=== PATIENT | female | born 1995 | race Caucasian/White ===

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

== ENCOUNTER 2017-03-24 19:52 | Emergency (ER) | payer BC ==
[~2017-03-24] VITALS: Ht 170.2 cm; Wt 66.5 kg
[~2017-03-24 19:52] MED LIST changes: -LIDO/EPINEPHRINE/SOD BICARB 20 ML VIAL INFIL ONE; -QUET1TAB11 PO; -SERT-234 PO; -XYLOCAINE 1%/SOD BICARB 20 ML VIAL INFIL ONE
[2017-03-24 20:10] VITALS: Ht 170.2 cm; Wt 66.5 kg
[2017-03-24] MEDS ORDERED: LEVO112T4 PO (21:18)
[2017-03-24] MEDS ORDERED: GDN60 PO (21:18)
[2017-03-24] MEDS ORDERED: KLN5X PO (21:18)
[2017-03-24] MEDS ORDERED: LAMO200T35 PO (21:18)
[2017-03-24] MEDS ORDERED: KLN5 PO (21:18)
[2017-03-24 21:32] LABS: BASO % 0.3 %; BASO ABS # 0.03 K/uL (0-0.2); EOS % 2.2 %; HEMATOCRIT 39.9 % (37-47); HEMOGLOBIN 13.4 g/dL (12.0-16.0); IG# 0.02 K/uL (0.00-0.02); LYMPH % 31.5 %; MEAN CELL VOLUME 94.3 fL (80-100); MEAN CORPUSCULAR HEMOGLOBIN 31.7 pg (25-34); MEAN CORPUSCULAR HGB CONC 33.6 g/dl (32-36); MEAN PLATELET VOLUME 10.2 fL (7.4-10.4); MONO % 7.8 %; MONO ABS # 0.72 K/uL (0.11-0.59); NEUT ABS # 5.34 K/uL (1.4-6.5); PLATELET COUNT 296 K/uL (130-400); RED CELL DISTRIBUTION WIDTH CV 12.3 % (11.5-14.5); RED CELL DISTRIBUTION WIDTH SD 42.1 fL (36.4-46.3); WHITE BLOOD COUNT 9.21 K/uL (4.8-10.8)
[2017-03-24 21:53] LABS: CALCIUM 9.4 mg/dl (8.5-10.1); CREATININE 0.88 mg/dl (0.60-1.20); POTASSIUM 3.3 mmol/L (3.5-5.1)
[2017-03-24 21:56] LABS: TOTAL PROTEIN 7.5 gm/dl (6.4-8.2)
[2017-03-24] MEDS ORDERED: CEFTRIAXONE SOD INJ 1 GM ADDVIAL IV STA (22:02)
[2017-03-24] MEDS ORDERED: SULF800T23 PO (23:05)
[2017-03-24] MEDS ORDERED: CEPH500C PO (23:05)
[2017-03-24 23:30] VITALS: BP 115/64; PULSE 81; TEMP 36.8; O2SAT 99
--- NOTE | 2017-03-25 01:08 | EMERGENCY ROOM VISIT NOTE ---
History Report prepared by Denis: Kajal Reese Under the Supervision of: Dr. Lb Mcelroy D.O. First contact with patient: 21:50 Chief Complaint: INFECTION Stated Complaint: SWOLLEN/INFLAMMED LT FOOT, BACTERIAL INFECTION Nursing Triage Summary: Pt reports she has an infected left foot. She went to the walk in clinic yesterday and placed on antibiotics. They told her if it did not get any better to come to ED. History of Present Illness The patient is a 21 year old female who presents to the Emergency Room with complaints of persistent infection starting 1.5 weeks ago. She developed a blister on the back of her left foot from walking around with part of her shoe bent inwards. She started getting redness surrounding the blister 2-3 days ago. She went to the clinic yesterday and was started on clindamycin and mupirocin. She was told to go to the ED today if the infection did not improve. She denies any fever, cough, rhinorrhea, or other symptoms. She is a [employer] student. Source of History: patient Onset: 1.5 weeks ago Position: foot (left) Quality: other (infection) Timing: other (persistent) Associated Symptoms: No fevers, No cough Review of Systems See HPI for pertinent positives & negatives. A total of 10 systems reviewed and were otherwise negative. Past Medical & Surgical Medical Problems: (1) Borderline persoality traits (2) Borderline Personality Traits (3) Eating disorder (4) Hypothyroidism (5) Major depressive disorder (6) Past Psychiatric Medications (7) Self-inflicted lacerations Family History Patient reports no known family medical history. Social History Smoking Status: Never Smoker Occupation Status: [employer] student Current/Historical Medications Scheduled Cephalexin Monohydrate (Keflex), 500 MG PO QID Clonazepam (Clonazepam), 0.25 MG PO BID Lamotrigine (Lamictal), 200 MG PO BID Levothyroxine Sodium (Levothyroxine Sodium), 112 MCG PO DAILY Sulfamethoxazole-Trimethoprim (Bactrim Ds 800MG/160MG), 1 TAB PO BID Ziprasidone (Geodon), 120 MG PO QPM Scheduled PRN Clonazepam (Clonazepam), 0.5 MG PO DAILY PRN for Anxiety Allergies Coded Allergies: No Known Allergies (Unverified , 03/14/16) Physical Exam Vital Signs Date Time Temp Pulse Resp B/P (MAP) Pulse Ox O2 Delivery O2 Flow Rate FiO2 03/24/17 23:30 36.8 81 16 115/64 99 Room Air 03/24/17 20:10 36.7 80 16 113/73 99 Room Air Physical Exam GENERAL: Sitting up in bed, alert, well appearing, well nourished, no distress, non-toxic EYE EXAM: normal conjunctiva. OROPHARYNX: no exudate, no erythema, lips, buccal mucosa, and tongue normal and mucous membranes are moist NECK: supple, no nuchal rigidity, no adenopathy, non-tender LUNGS: Clear to auscultation. Normal chest wall mechanics HEART: no murmurs, S1 normal and S2 normal ABDOMEN: abdomen soft, non-tender, normo-active bowel sounds, no masses, no rebound or guarding. SKIN: no rashes and no bruising UPPER EXTREMITIES: upper extremities are grossly normal. LOWER EXTREMITIES: No pitting edema. 2.5 cm ulcer with green purulent drainage at the base of the left heel with overlying pale skin. Surrounding erythema is present, but does not go above current line drawn from [facility]. NEURO EXAM: Normal sensorium, cranial nerves II-XII grossly intact, normal speech, no gross weakness of arms, no gross weakness of legs. Bedside US shows no fluid collection or abscess. Medical Decision & Procedures Laboratory Results 03/24/17 21:15 Red Blood Count 4.23, Mean Corpuscular Volume 94.3, Mean Corpuscular Hemoglobin 31.7, Mean Corpuscular Hemoglobin Concent 33.6, Mean Platelet Volume 10.2, Neutrophils (%) (Auto) 58.0, Lymphocytes (%) (Auto) 31.5, Monocytes (%) (Auto) 7.8, Eosinophils (%) (Auto) 2.2, Basophils (%) (Auto) 0.3, Neutrophils # (Auto) 5.34, Lymphocytes # (Auto) 2.90, Monocytes # (Auto) 0.72, Eosinophils # (Auto) 0.20, Basophils # (Auto) 0.03 03/24/17 21:15 Test 03/24/17 21:05 03/24/17 21:15 Urine Color YELLOW Urine Appearance CLEAR (CLEAR) Urine pH 7.0 (4.5-7.5) Urine Specific [place] 1.012 (1.000-1.030) Urine Protein NEG (NEG) Urine Glucose (UA) NEG (NEG) Urine Ketones NEG (NEG) Urine Occult Blood TRACE (NEG) Urine Nitrite NEG (NEG) Urine Bilirubin NEG (NEG) Urine Urobilinogen NEG (NEG) Urine Leukocyte Esterase MODERATE (NEG) Urine WBC (Auto) 10-30 /hpf (0-5) Urine RBC (Auto) 5-10 /hpf (0-4) Urine Hyaline Casts (Auto) 1-5 /lpf (0-5) Urine Epithelial Cells (Auto) >30 /lpf (0-5) Urine Bacteria (Auto) 1+ (NEG) Urine Test NEG (NEG) White Blood Count 9.21 K/uL (4.8-10.8) Red Blood Count 4.23 M/uL (4.2-5.4) Hemoglobin 13.4 g/dL (12.0-16.0) Hematocrit 39.9 % (37-47) Mean Corpuscular Volume 94.3 fL (80-100) Mean Corpuscular Hemoglobin 31.7 pg (25-34) Mean Corpuscular Hemoglobin Concent 33.6 g/dl (32-36) Platelet Count 296 K/uL (130-400) Mean Platelet Volume 10.2 fL (7.4-10.4) Neutrophils (%) (Auto) 58.0 % Lymphocytes (%) (Auto) 31.5 % Monocytes (%) (Auto) 7.8 % Eosinophils (%) (Auto) 2.2 % Basophils (%) (Auto) 0.3 % Neutrophils # (Auto) 5.34 K/uL (1.4-6.5) Lymphocytes # (Auto) 2.90 K/uL (1.2-3.4) Monocytes # (Auto) 0.72 K/uL (0.11-0.59) Eosinophils # (Auto) 0.20 K/uL (0-0.5) Basophils # (Auto) 0.03 K/uL (0-0.2) RDW Standard Deviation 42.1 fL (36.4-46.3) RDW Coefficient of Variation 12.3 % (11.5-14.5) Immature Granulocyte % (Auto) 0.2 % Immature Granulocyte # (Auto) 0.02 K/uL (0.00-0.02) Anion Gap 8.0 mmol/L (3-11) Est Creatinine Clear Calc Drug Dose 100.0 ml/min Estimated GFR () 110.4 Estimated GFR (Non- 95.3 BUN/Creatinine Ratio 6.4 (10-20) Calcium Level 9.4 mg/dl (8.5-10.1) Total Bilirubin 0.4 mg/dl (0.2-1) Aspartate Amino Transf (AST/SGOT) 26 U/L (15-37) Alanine Aminotransferase (ALT/SGPT) 24 U/L (12-78) Alkaline Phosphatase 70 U/L (45-117) Total Protein 7.5 gm/dl (6.4-8.2) Albumin 4.0 gm/dl (3.4-5.0) Globulin 3.5 gm/dl (2.5-4.0) Albumin/Globulin Ratio 1.1 (0.9-2) Laboratory results per my review. Medications Administered Medications (Trade) Dose Ordered Sig/Bebo Route Start Time Stop Time Status Last Admin Dose Admin Ceftriaxone Sodium (Rocephin Inj) 1 gm NOW STAT IV 03/24/17 22:02 03/24/17 22:03 DC 03/24/17 22:02 1 GM ED Course ED COURSE: Vital signs were reviewed and showed normal vitals. The patients medical record was reviewed The above diagnostic studies were performed and reviewed. ED treatments and interventions as stated above. 2154: The patient was evaluated in room A8. A complete history and physical examination was performed. 2201: Rocephin Inj 1 gm IV. 2301: Upon reevaluation, the patient is resting comfortably. I discussed my findings with the patient and she understands and agrees with the treatment plan. Based on the patients age, coexisting illnesses, exam and lab findings the decision to treat as an outpatient was made. The patient remained stable while under my care. The patient appeared well at the time of discharge. Medical Decision Differential diagnosis: Etiologies such as cellulitis, abscess, MRSA infection, DVT, necrotizing fasciitis, dermatitis, drug eruption, as well as others were entertained.. Patient is a 21-year-old female who presents to ER for a left heel ulcer which started from walking around in boots. She notes now she has surrounding erythema and swelling. On exam she has clear cellulitis. There was purulent discharge removed. Swab was obtained and sent for culture. Patient just started antibiotics 24 hours ago. He did switch her to Bactrim and Keflex. I considered covering for pseudomonas but we'll wait for culture. Patient was afebrile. CBC and BMP were unremarkable. Patient was updated bedside. Again bedside ultrasound showed no abscess, there is no leukocytosis, and patient was afebrile on antibiotics less than 24 hours; felt it was reasonable to discharge patient was well-appearing follow-up with U at bedtime as an outpatient within 24-48 hours for a wound recheck. Discussed with Pt concerning signs and symptoms to watch out for. Pt was instructed to follow up with their PCP and discussed with the patient their option to return to the ED at anytime for persistent or worsening symptoms. The appropriate anticipatory guidance and out- patient management, including indications for return to the emergency department , were explained at length to the patient and understood. Medication Reconcilliation Current Medication List: was personally reviewed by me Blood Pressure Screening Patient's blood pressure: Normal blood pressure Blood pressure disposition: Did not require urgent referral Impression Primary Impression: Cellulitis Additional Impression: Hypokalemia Scribe Attestation The scribe's documentation has been prepared under my direction and personally reviewed by me in its entirety. I confirm that the note above accurately reflects all work, treatment, procedures, and medical decision making performed by me. Departure Information Dispostion Home / Self-Care Prescriptions Cephalexin Monohydrate (Keflex) 500 Mg Cap 500 MG PO QID, #40 CAP Prov: Lb Mcelroy, DO 03/24/17 Sulfamethoxazole-Trimethoprim (Bactrim Ds 800MG/160MG) 1 Tab Tab 1 TAB PO BID for 10 Days, #20 TAB Prov: Lb Mcelroy, DO 03/24/17 Referrals No Doctor, Assigned (PCP) Forms HOME CARE DOCUMENTATION FORM, IMPORTANT VISIT INFORMATION, WORK / SCHOOL INSTRUCTIONS Patient Instructions Cellulitis - [facility], My [facility] Additional Instructions Please follow up with your primary care doctor or if you are a student, [facility] services with in the next 24 hours. Any worsening of your symptoms, please return to the ED immediately. This includes any fevers greater than 100.4, worsening pain, redness streaking up your leg, or any other concerning signs or symptoms from your standpoint. Please keep the wound clean dry and covered. Your wound should be reevaluated within 48 hours. It will likely get slightly worse within the next 24 hours. Any streaking/redness up the length of the leg you must return immediately to the ER. Please take antibiotics as prescribed. Please stop taking clindamycin. Problem Qualifiers Primary Impression: Cellulitis Site of cellulitis: unspecified site Qualified Codes: L03.90 - Cellulitis, unspecified
== END 2017-03-24 23:35 | disposition home or self-care (01) ==
LOC: C.EDB 19:55 → C.EDA 23:35
DX: L03.116 Cellulitis of left lower limb (principal); E03.9 Hypothyroidism, unspecified; Z79.899 Other long term (current) drug therapy